=== PATIENT | male | born 1950 | race Caucasian/White ===

== ENCOUNTER 2022-06-06 07:51 | Emergency (ER) | payer MEDICARE ==
[~2022-06-06] VITALS: Ht 180.3 cm; Wt 90.7 kg
--- NOTE | 2022-06-06 08:24 | NUR ---
Patient is AOx4, unable to recall exact names & dosages of his home medicines
--- NOTE | 2022-06-06 08:25 | NUR ---
Nursing SBAR given to primary nurse Jane.
[2022-06-06] MEDS ORDERED: OXYMETAZOLINE NASAL 0.05% 15 ML SPRAY NS ONE ×2 (09:00→09:05)
[2022-06-06 10:13] LABS: HEMATOCRIT 37.2 % (36.7-47.1); MEAN CORPUSCULAR HEMOGLOBIN 30.7 uug (23.8-33.4); MEAN CORPUSCULAR VOLUME 86.8 fL (73.0-96.2); PLATELET COUNT (AUTO) 229 K/uL (152-348)
[2022-06-06 10:27] LABS: CREATININE 0.8 mg/dL (0.6-1.3); POTASSIUM 3.9 mmol/L (3.5-5.1)
[2022-06-06 10:32] LABS: BILIRUBIN,TOTAL 0.5 mg/dL (0.2-1.0); TOTAL PROTEIN, SERUM 7.8 g/dL (6.4-8.2)
--- NOTE | 2022-06-06 11:31 | NUR ---
No active nosebleeding seen. Manager Child assumes care now. Patient discharged to home in stable condition with brisk steady gait. Written and verbal after care instructions given. Patient verbalized understanding and compliance of instructions. Stressed follow up or return to ER for worsening s/s.
== END 2022-06-06 11:31 | disposition home or self-care (01) ==
LOC: ER 07:51
DX: R04.0 Epistaxis (principal); E78.5 Hyperlipidemia, unspecified
CPT/HCPCS: 36415; 85025; 85610; 85730; A4663